=== PATIENT | female | born 1985 | race Asian ===

== ENCOUNTER 2021-06-25 12:57 | Emergency (ER) | payer OTHER, SELFPAY ==
--- NOTE | ~2021-06-25 | XR_ITS ---
EXAMINATION: XR ANKLE, RIGHT CLINICAL INFORMATION: Right ankle pain. Injury. COMPARISON: None TECHNIQUE: AP, lateral, and mortise views of the right ankle. FINDINGS: Soft tissue swelling around the ankle. Ankle mortise is congruent. Corticated 2 mm osseous density adjacent to the tip of the lateral malleolus and the lateral talar process. Could be small chip fracture but no donor site is present and corticated margins suggesting this is old. The ankle joint is otherwise normal. XR/XR ankle RT min 3V IMPRESSION: 1. There is soft tissue swelling around ankle. 2. Tiny osseous density adjacent to the tip of the lateral malleolus and the lateral talar process which appears corticated and is likely old. Cannot entirely exclude a small chip fracture.
[2021-06-25 14:03] VITALS: BP 122/63; PULSE 69; RESP 18; TEMP 36.7; O2SAT 100; BMI 27.3
--- NOTE | 2021-06-25 14:33 | ED.LOWEXIN ---
HPI - Extremity Injury (Lower) General Chief Complaint: Extremity Injury, Lower Stated Complaint: r ankle swelling Time Seen by Provider: 06/25/21 14:07 Source: patient Mode of arrival: ambulatory Limitations: no limitations History of Present Illness HPI Narrative: Patient is a 35 year old female presenting to the emergency department today with right ankle pain. Patient states that she twisted her right ankle a few days ago and it has been hurting since. Patient denies hitting her head with the incident or having any loss of consciousness with the incident. Patient denies any dizziness, lightheadedness, abdominal pain, nausea, vomiting, fever, chills, blurry vision, double vision, loss of vision, chest pain, difficulty breathing, shortness of breath, back pain, night sweats, pain with urination, increased urinary frequency, increased urinary urgency, blood in [his/her] urine or stool, syncope or a near syncopal episode, recent trauma or falls, bowel incontinence, bladder incontinence, bowel retention, bladder retention, or any other complaints at this time. Patient states that [he/she] has a history of [insert medical history].? Related Data Allergies Allergy/AdvReac Type Severity Reaction Status Date / Time No Known Allergies Allergy Verified 06/25/21 14:07 [facility] Social History Social History Advance Directives: No Advance Directives Information Provided: No Physical Exam Vital Signs: Vital Signs: Last Vital Signs Temp 98.0 F 06/25/21 14:03 Pulse 69 06/25/21 14:03 Resp 18 06/25/21 14:03 BP 122/63 06/25/21 14:03 Pulse Ox 100 06/25/21 14:03 BMI result Body Mass Index 27.3 MDM - Extremity Injury (Lower) MDM Narrative Medical decision making narrative: Patient is a 35 year old female presenting to the emergency department today with right ankle pain. Patient's physical exam was unremarkable. Patient's right ankle x-ray showed a possible chip fracture. I explained my physical exam findings as well as all test results to the patient. I answered all questions asked by the patient. Patient's right foot was placed in a post op shoe, patient already had crutches. I stressed the importance of the patient taking her medication as prescribed. I stressed the importance of the patient following up with her primary care provider and orthopedist. I stressed the importance of the patient returning to the emergency department immediately if her symptoms were to worsen or if she were to develop any dizziness, shortness of breath, difficulty breathing, chest pain, blurry vision, loss of vision, nausea, vomiting, abdominal pain, fever, chills, back pain, or any other complaints. Patient verbalized agreement and understanding with this treatment plan and discharge. Differential Diagnosis Differential diagnosis: Likely ankle sprain and strain and ankle fracture Medical Records Attestation: I reviewed the patient's medical records. Imaging Data Right ankle x-ray: Attestation: I personally reviewed and interpreted this imaging study as follows: My impression: Possible chip fracture. Radiologist's impression: EXAMINATION: XR ANKLE, RIGHT CLINICAL INFORMATION: Right ankle pain. Injury.? COMPARISON: None? TECHNIQUE: AP, lateral, and mortise views of the right ankle. FINDINGS: Soft tissue swelling around the ankle. Ankle mortise is congruent. Corticated 2 mm osseous density adjacent to the tip of the lateral malleolus and the lateral talar process. Could be small chip fracture but no donor site is present and corticated margins suggesting this is old. The ankle joint is otherwise normal.? XR/XR ankle RT min 3V IMPRESSION: ? 1. There is soft tissue swelling around ankle. 2. Tiny osseous density adjacent to the tip of the lateral malleolus and the lateral talar process which appears corticated and is likely old. Cannot entirely exclude a small chip fracture. Dictated By: Neo Martinez MD Signed By: Electronically signed by Neo Martinez MD 06/25/21 1528 Procedures Orthopedic Splinting/Casting Injury #1: Side: right Lower Extremity Injury Location: ankle Lower Extremity Immobilizer: post-op shoe Other Orthopedic Equipment: crutches Discharge Plan Discharge Clinical Impression: Ankle fracture Patient Disposition: Home, Self-Care Instructions: Ankle Fracture (DC) Additional Instructions: Call to schedule a follow up appointment with an Orthopedic provider. Follow up with your primary care provider. Return to the emergency department immediately if your symptoms worsen or if you develop any dizziness, shortness of breath, difficulty breathing, chest pain, blurry vision, loss of vision, nausea, vomiting, abdominal pain, fever, chills, back pain, or any other complaints. Referrals: Easton Bejarano MD [Physician] - 2 days PhysicianBari [Primary Care Provider] - 2 days (Follow up with your PCP. ) Stand Alone Forms: Work/School Release Interventions: ED Discharge Assessment Last Done: 06/25/21 16:06 Discharge Date/Time: 06/25/21 16:07 Print Language: Bahamian
== END 2021-06-25 16:07 | disposition home or self-care (01) ==
PROVIDERS: Emergency Provider Emergency Medicine
DX: S82.891A Other fracture of right lower leg, initial encounter for closed fracture (principal); X50.1XXA Overexertion from prolonged static or awkward postures, initial encounter; Y93.9 Activity, unspecified; Y92.9 Unspecified place or not applicable; Y99.9 Unspecified external cause status
CPT/HCPCS: 73610; 99283

== ENCOUNTER → 2021-07-02 09:54 | Outpatient (BNVA) | payer OTHER, SELFPAY | PROVIDERS: Visit Provider Physician Assistant | DX: S93.401A Sprain of unspecified ligament of right ankle, initial encounter (principal) | CPT/HCPCS: 99202 ==

== ENCOUNTER 2021-08-01 10:00 | Outpatient (RCR) | payer OTHER, SELFPAY ==
--- NOTE | 2021-07-26 16:08 | MHC.PT.EP ---
[facility] [place] Office [place] Office [place] Office [address] Luis Antonio Colon [address] [phone] F: [phone] F: [phone] F: [phone] F: [phone] Physical Therapy Plan of Care Date of Evaluation: Date of Surgery: n/a Diagnosis: R ankle sprain Assessment: Patient is a 35 year old female presenting to PT with complaints of pain in her R ankle. Pt reports onset of pain began 06/22/2021 due to stepping in a pothole when walking her dog causing her to twist her ankle. She presents today with impairments in pain, ankle strength, balance, and gait mechanics. 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 Pt expresses [facility]p goal of reducing pain, and is motivated to work towards this in PT. Clinical presentation today is most consistent with signs and sx associated with R ankle avulsion fx and pt will benefit from skilled PT to address the following problems and impairments noted upon evaluation: pain, ankle strength, balance, and gait mechanics. These problems limit the patient with the following functional activities: ambulation and work. The prescribed treatment plan of care is medically necessary. Co-morbidities of none were identified and taken into considerations of plan of care. Pt was educated on HEP, role of PT, prognosis, POC. Frequency and Duration: The patient will be seen 2 x week x 4 weeks Short Term Goals: Pt will demonstrate ankle AROM with in available range without pain in 2 weeks. Pt will demonstrate improved inv and ev ankle strength to 5/5 in 2 weeks. Pt will demonstrate ability to perform SLS x 30 sec on R with min to no pain or sway in 2 weeks. Correction Goals: Pt will demonstrate ability to ambulate with good mechanics and no surgical shoe in 4 weeks for return to PLOF. Pt will demonstrate ability to stand for prolonged periods of time with min to no pain in 4 weeks to prepare for return to work. Treatment Plan: Modalities to reduce pain, spasms and effusion. Manual therapy to restore motion and function. Therapeutic exercise to improve strength and flexibility. Neuromuscular re-education for posture and balance. Therapeutic activities to return to functional activities of daily living. Electronically signed by: Shreya Blackman, PT, DPT, ATC Please sign and return to therapist. Thank you for your referral.
--- NOTE | 2021-09-14 07:51 | MHC.PT.DC ---
[facility] [place] [facility] [place] Office [place] Office [address] Luis Antonio Colon 140 [facility] [phone] F: [phone] F: [phone] F: [phone] F: [phone] Physical Therapy Discharge Report Diagnosis: R ankle sprain Date of Surgery: n/a Date of Evaluation: 07/26/21 Date of Discharge: 09/14/21 Treatments to Date: 2 Cancellations to Date: 7 No Shows to Date: 0 Discharge Status: Patient Elected to Stop Discharge Summary: Pt cancelled all remaining appointments and has not reached out to be scheduled in >30 days. Electronically signed by: Shreya Blackman, PT, DPT, ATC Please sign and return to therapist. Thank you for your referral.
== END 2021-09-14 07:51 | disposition home or self-care (01) ==
LOC: HO.PTCHIC 10:00
PROVIDERS: Visit Provider Physician Assistant
DX: S93.401A Sprain of unspecified ligament of right ankle, initial encounter (principal)
CPT/HCPCS: 97110; 97161

== ENCOUNTER 2022-02-11 09:09 | Outpatient (REF) | payer OTHER, SELFPAY ==
[2022-02-11 11:29] LABS: MANUAL DIFF FLAG NO
[2022-02-11 11:40] LABS: Appearance Urine Clear; Color Urine Yellow; Glucose Urine UA Negative (Negative); Leukocyte Esterase Urine Small (1+) (Negative); Nitrite Urine Negative (Negative); UMIC TRIGGER UACC YES; Urine Blood Trace (Negative); Urine Ketones Negative (Negative); Urine Protein Negative (Neg-Trace)
[2022-02-11 11:46] LABS: Basophils Absolute Auto 0.1 X10*3/uL (0.0-0.2); Basophils Percent Auto 0.9 % (0-2); Eosinophils Absolute Auto 0.1 X10*3/uL (0.0-0.4); Eosinophils Percent Auto 1.6 % (0-4); Hematocrit 34.4 % (37.0-47.0); Hemoglobin 10.3 g/dl (12.0-16.0); Imm Gran Abs Auto 0.01 X10*3/uL (0.00-0.03); Imm Gran Pct Auto 0.2 % (0.0-0.4); Lymphocytes Absolute Auto 1.5 X10*3/uL (1.2-4.9); Lymphocytes Percent Auto 25.9 % (20-40); Mean Corpuscular HGB Conc 29.9 g/dl (31.0-35.0); Mean Corpuscular Hemoglobin 22.6 pg (27.0-33.0); Mean Corpuscular Volume 75.6 fL (80.0-98.0); Mean Platelet Volume 11.4 fL (9.4-12.3); Monocytes Absolute Auto 0.7 X10*3/uL (0.1-1.2); Neutrophils Absolute Auto 3.4 x10*3/uL (2.0-8.3); Neutrophils Percent Auto 59.4 % (45-73); Platelet Count 324 X10*3/uL (160-400); Red Blood Count 4.55 X10*6/uL (4.20-5.50); Red Cell Distribution Width 15.3 % (11.0-16.0); White Blood Count 5.7 X10*3/uL (4.8-10.8)
[2022-02-11 12:09] LABS: RBC Urine 0-2 /HPF (0-2); Renal Epithelial Cells Urine Present; UACC Culture Trigger YES; WBC Urine 0-5 /HPF (0-5)
[2022-02-11 12:10] LABS: Bacteria Urine None Seen (None Seen); Hyaline Casts Urine 0-2 /LPF (0-2)
[2022-02-11 12:31] LABS: TSH reflex Free T4 2.87 uIU/mL (0.32-4.0)
[2022-02-11 12:40] LABS: Alanine Aminotransferase 14 U/L (0-31); Albumin Level 4.3 g/dL (3.5-5.0); Alkaline Phosphatase 59 U/L (39-117); Anion Gap 12 (12-20); Aspartate Amino Transferase 14 U/L (5-31); Bilirubin Total 0.6 mg/dL (0.0-1.0); Blood Urea Nitrogen 9 mg/dL (9-16); Calcium 9.1 mg/dL (8.4-10.2); Carbon Dioxide 28 mmol/L (22-29); Chloride 101 mmol/L (96-108); Cholesterol 160 mg/dL; Estimated Glomerular Filt Rate > 60; Glucose Fasting 90 mg/dL (60-99); HDL Cholesterol 43 mg/dL; LDL Cholesterol Calculated 82 mg/dl; Potassium 4.5 mmol/L (3.3-5.1); Sodium 136 mmol/L (135-145); Total Protein 7.1 g/dL (6.5-8.0); Triglycerides 179 mg/dL
[2022-02-11 13:57] LABS: Vitamin D 25-OH Total 30.9 ng/mL (>30)
== END 2022-02-11 09:10 | disposition home or self-care (01) ==
LOC: HO.HMGCLDS 09:09
PROVIDERS: PCP Internal Medicine; Visit Provider Internal Medicine
DX: Z00.00 Encounter for general adult medical examination without abnormal findings (principal); E78.00 Pure hypercholesterolemia, unspecified; E55.9 Vitamin D deficiency, unspecified; I10 Essential (primary) hypertension
CPT/HCPCS: 36415; 80053; 80061; 81001; 82306; 84443; 85025; 87086

== ENCOUNTER 2022-03-14 15:14 | Outpatient (REF) | payer OTHER, SELFPAY ==
--- NOTE | ~2022-03-14 | US_ITS ---
EXAMINATION: US PELVIS COMPLETE CLINICAL INFORMATION: Ovarian cyst COMPARISON: None TECHNIQUE: Transabdominal and transvaginal imaging was performed. FINDINGS: The uterus is enlarged with myomas measuring 10.8 x 5.3 x 6.9 cm. A regular homogeneous endometrium is identified measuring 1.0 cm. Nabothian cysts in the cervix. A 2.0 cm subserosal myoma in the posterior body of the uterus, a 2.3 cm subserosal myoma in the anterior body of the uterus and a 1.6 cm intramural myoma in the anterior lower uterine segment. The right ovary measures 3.9 x 4.0 x 4.4 cm for a volume of 35.8 mL. There is a 3.9 x 3.1 x 3.6 cm right ovarian cyst with a single thin internal septation. There is a question of a possible 2 cm avascular mural nodule. The left ovary was not identified sonographically. No left adnexal mass. There is no pelvic free fluid. US/US pelvic and transvaginal IMPRESSION: A 3.9 cm right ovarian cystic lesion which demonstrates a thin internal septation with a possible 2 cm avascular mural nodule. Consider short interval follow-up pelvic ultrasound in 6 weeks, and if findings persist contrast-enhanced MR is recommended for further evaluation. Subserosal and intramural myomas. Left ovary was not identified sonographically. No adnexal mass. The report will be called to the ordering clinician by a [facility]ician Tuck Pointer.
== END 2022-03-14 15:15 | disposition home or self-care (01) ==
LOC: HO.HMGCX 15:14
PROVIDERS: PCP Internal Medicine; Visit Provider Internal Medicine
DX: N83.209 Unspecified ovarian cyst, unspecified side (principal)
CPT/HCPCS: 76830; 76856

== ENCOUNTER 2022-05-23 13:07 | Outpatient (REF) | payer OTHER, SELFPAY ==
--- NOTE | ~2022-05-23 | US_ITS ---
EXAMINATION: US PELVIC AND TRANSVAGINAL CLINICAL INFORMATION: Leiomyoma of the uterus. COMPARISON: 03/14/2022 TECHNIQUE: Ultrasound of the pelvis is performed using both transabdominal and transvaginal transducers along with Doppler. Transvaginal imaging is performed due to inadequate visualization transabdominally. FINDINGS: UTERUS: The multi-fibroid uterus is anteverted and enlarged measuring 10.8 x 6.1 x 9.0 cm The double wall endometrial thickness is 13 mm. Nabothian cysts are seen in the cervix. Multiple uterine fibroids are seen with the largest fibroids having increased in size. Sizes of fibroids are listed below in cm with measurements from February): 2.2 x 1.5 x 2.5 (1.8 x 1.7 x 2.0) anterior body. 3.0 x 2.6 x 2.5 (2.1 x 2.3 x 2.3) fundus. 1.3 x 0.9 x 1.7 (2.1 x 1.9 x 1.9) fundus. 1.4 x 1.5 x 1.4 cm (1.4 x 1.6 x 1.5 cm) lower uterine segment. 1.0 x 0.7 x 0.7 cm (not seen previously) uterine body. 1.3 x 0.8 x 1.1 cm (not seen previously) uterine body. ADNEXA: The right ovary measured 3.3 x 2.7 x 3.0 cm for a volume of 13.8 mL which included a benign-appearing 1.7 x 1.3 x 1.8 cm cyst. The left ovary was not seen and there is a history of having it been removed. A small amount of fluid is present in the cul-de-sac. US/US pelvic and transvaginal IMPRESSION: 1. Fibroid uterus with the largest fibroid measuring 3 cm in size. The largest 2 fibroids have increased in size and some are unchanged and one has decreased in size. 2. Benign-appearing right ovarian cyst needs no further followup.
== END 2022-05-23 13:08 | disposition home or self-care (01) ==
LOC: HO.HMGCX 13:07
PROVIDERS: PCP Internal Medicine; Visit Provider Internal Medicine
DX: D25.9 Leiomyoma of uterus, unspecified (principal); N83.209 Unspecified ovarian cyst, unspecified side
CPT/HCPCS: 76830; 76856

== ENCOUNTER 2022-06-25 09:04 | Outpatient (REF) | payer OTHER, SELFPAY ==
--- NOTE | ~2022-06-25 | FL_ITS ---
EXAMINATION: XR GI SERIES CLINICAL INFORMATION: Epigastric pain. COMPARISON: None available. TECHNIQUE: Routine upper GI air-contrast study was performed in upright and lying positions. FINDINGS: Following oral administration of thick barium and effervescent granules in upright view, there is normal propagation of bolus from the oral cavity through the pharynx and esophagus and into the stomach without any evidence of obstruction, narrowing or stricture. On placing patient supine and prone, the course, caliber and peristalsis of the stomach, duodenal bulb and sweep are normal. The mucosal pattern of the duodenum and stomach is normal. There is a large gastroesophageal reflux into the upper esophagus without hiatal hernia. FLUOROSCOPY TIME: 1.8 min. DOSE AREA PRODUCT: 26.975 uGy-m2 (microgray-meter squared). FL/FL upper GI series IMPRESSION: Large gastroesophageal reflux without hiatal hernia. Otherwise unremarkable upper GI air-contrast study.
== END 2022-06-25 09:05 | disposition home or self-care (01) ==
LOC: HO.XRAY 09:04
PROVIDERS: PCP Internal Medicine; Visit Provider Internal Medicine
DX: R10.13 Epigastric pain (principal)
CPT/HCPCS: 74240

== ENCOUNTER 2022-06-27 10:56 | Outpatient (REF) | payer OTHER, SELFPAY ==
[2022-06-28 11:38] LABS: CT PCR NOT DETECTED (Not Detect.); NG PCR NOT DETECTED (Not Detect.)
[2022-06-28 12:33] LABS: BV Int Neg Control Negative (Negative); BV Int Pos Control Positive (Positive)
[2022-07-02 04:08] LABS: HPV mRNA E6/E7 rflx Not Detected (Not Detected)
== END 2022-06-27 10:57 | disposition home or self-care (01) ==
LOC: HO.LNP 10:56
PROVIDERS: PCP Internal Medicine; Visit Provider Advanced Practice Midwife
DX: Z01.419 Encounter for gynecological examination (general) (routine) without abnormal findings (principal); Z11.51 Encounter for screening for human papillomavirus (HPV)
CPT/HCPCS: 0353U; 87480; 87510; 87624; 87660; 88142

== ENCOUNTER 2022-08-07 08:58 | Outpatient (REF) | payer OTHER, SELFPAY ==
[2022-08-07 15:27] LABS: CT PCR NOT DETECTED (Not Detect.); NG PCR NOT DETECTED (Not Detect.)
[2022-08-08 10:10] LABS: BV Int Neg Control Negative (Negative); BV Int Pos Control Positive (Positive)
[2022-08-09 04:18] LABS: HPV mRNA E6/E7 rflx Not Detected (Not Detected)
== END 2022-08-07 08:59 | disposition home or self-care (01) ==
LOC: HO.LNP 08:58
PROVIDERS: PCP Internal Medicine; Visit Provider Advanced Practice Midwife
DX: Z12.4 Encounter for screening for malignant neoplasm of cervix (principal); Z11.51 Encounter for screening for human papillomavirus (HPV); R87.615 Unsatisfactory cytologic smear of cervix; N89.8 Other specified noninflammatory disorders of vagina; N96 Recurrent pregnancy loss; D25.1 Intramural leiomyoma of uterus; D25.2 Subserosal leiomyoma of uterus; D50.8 Other iron deficiency anemias
CPT/HCPCS: 0353U; 87480; 87510; 87624; 87660; 88142; 99212